=== PATIENT | female | born 1955 | race Caucasian/White ===

== ENCOUNTER 2018-11-15 08:19 | Emergency (ER) | payer OTHER ==
[~2018-11-15] VITALS: Ht 162.6 cm; Wt 72.6 kg
[2018-11-15] MEDS ORDERED: ULTRACET PO (14:48)
== END 2018-11-15 16:58 | disposition home or self-care (01) ==
LOC: ER 08:19
DX: K57.92 Diverticulitis of intestine, part unspecified, without perforation or abscess without bleeding (principal); R10.32 Left lower quadrant pain